=== PATIENT | female | born 2000 | race Caucasian/White ===

== ENCOUNTER 2022-04-25 11:37 | Emergency (ER) | payer BC ==
[~2022-04-25] VITALS: Ht 170.2 cm; Wt 61.4 kg
[2022-04-25 11:42] VITALS: BP 136/93; TEMP 97
[2022-04-25 12:27] LABS: BASO % 0.3 % (0.0-2.0); EOS # 0.1 K/mm3 (0.0-0.7); EOS % 1.6 % (0.0-4.0); GRAN # 3.4 K/mm3 (1.4-6.5); HEMATOCRIT 37.8 % (37.0-47.0); LYMPH # 2.4 K/mm3 (1.2-3.4); LYMPH % 37.9 % (20.0-51.0); MEAN CELL VOLUME 88 fl (80.0-100.0); MEAN CORPUSCULAR HEMOGLOBIN 30 pg (27-31); MEAN CORPUSCULAR HGB CONC 34 g/dl (33.0-37.0); MEAN PLATELET VOLUME 9.6 fl (7.4-10.4); MONO # 0.4 K/mm3 (0.1-0.6); PLATELET COUNT 245 K/mm3 (130-400); RED BLOOD COUNT 4.28 M/mm3 (4.10-5.30)
[2022-04-25 12:46] LABS: ALBUMIN 3.9 gm/dL (3.5-5.0); BILIRUBIN,TOTAL 0.3 mg/dL (0.2-1.2); C-REACTIVE PROTEIN 0.27 mg/dL (0.00-0.50); CALCIUM 9.5 mg/dL (8.4-10.2); CREATININE, serum 0.75 mg/dL (0.57-1.11); POTASSIUM 4.2 mmol/L (3.5-4.5); TOTAL PROTEIN 7.6 gm/dL (6.2-8.1)
[2022-04-25 13:43] VITALS: PULSE 62
== END 2022-04-25 13:43 | disposition home or self-care (01) ==
LOC: COL.ER 11:37
PROVIDERS: Nurse Practitioner
DX: R42 Dizziness and giddiness (principal); R20.2 Paresthesia of skin